=== PATIENT | male | born 1975 | race Caucasian/White ===

== ENCOUNTER 2022-11-06 14:33 | Emergency (ER) | payer SELFPAY ==
[~2022-11-06] VITALS: Ht 177.8 cm; Wt 90.0 kg
[2022-11-06 14:48] VITALS: O2SAT 98
[2022-11-06 16:45] VITALS: TEMP 98
[2022-11-06] MEDS ORDERED: ACETAMINOPHEN 325MG TABLET PO ONE (16:45)
[2022-11-06] MEDS ORDERED: NAPR-1129 MT (18:23)
[2022-11-06 18:58] VITALS: BP 133/70; PULSE 76; RESP 16
== END 2022-11-06 18:58 | disposition home or self-care (01) ==
LOC: ER 14:49
DX: S09.90XA Unspecified injury of head, initial encounter (principal); G89.11 Acute pain due to trauma; V49.49XA Driver injured in collision with other motor vehicles in traffic accident, initial encounter; Y93.89 Activity, other specified; Y92.89 Other specified places as the place of occurrence of the external cause; Y99.8 Other external cause status
CPT/HCPCS: 99284